=== PATIENT | female | born 1955 | race Caucasian/White ===

== ENCOUNTER → 2022-10-29 | Outpatient (CLI) | payer MEDICARE, OTHER ==
--- NOTE | 2022-11-04 08:25 | MM ---
Reason for Exam: Screening (asymptomatic). Last mammogram was performed 1 year(s) and 6 month(s) ago. Patient History: Menarche at age 14. Hysterectomy at age 32. Currently using Estrogen, starting at age 61. Risk Values: Mi 5 year model risk: 1.2%. NCI Lifetime model risk: 4.4%. Prior Study Comparison: 04/16/2020 Bilateral Screening Mammogram, [facility]. 05/05/2021 Bilateral Screening Mammogram, [facility]. Tissue Density: The breast tissue is heterogeneously dense. This may lower the sensitivity of mammography. Findings: Analyzed By CAD. There is no suspicious group of microcalcifications or new suspicious mass in either breast. Overall Assessment: Negative, BI-RAD 1 Management: Screening Mammogram of both breasts in 1 year. A clinical breast exam by your physician is recommended on an annual basis and results should be correlated with mammographic findings. [facility] will attempt to contact patient to return for supplemental views and ultrasound if indicated. Electronically signed and approved by: Oj Wayne DO
== END | disposition home or self-care (01) ==
LOC: RADMAMWWP 09:15
PROVIDERS: ATTEND Family Medicine
DX: Z12.31 Encounter for screening mammogram for malignant neoplasm of breast (principal)
CPT/HCPCS: 77063; 77067

== ENCOUNTER → 2022-11-06 | Outpatient (CLI) | payer MEDICARE, OTHER ==
--- NOTE | 2022-11-06 09:00 | US ---
EXAMINATION TYPE: US abdomen complete DATE OF EXAM: 11/06/2022 COMPARISON: NONE CLINICAL HISTORY: N83.20 OVARIAN CYST. Abdominal /pelvic pain TECHNIQUE: Multiple sonographic images of the abdomen are obtained. 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 The intrahepatic portion of the IVC and proximal abdominal aorta are within normal limits. There is no evidence of cholelithiasis. Common bile duct is unremarkable. The visu alized portions of the pancreas are homogenous. The spleen is unremarkable. Kidneys are symmetric a nd free of hydronephrosis. No renal lesions are seen. IMPRESSION: 1. Limited exam without evidence for acute process. 2. Prominent common duct. This can be further evaluated with MRCP if clinically warranted. 3. Right renal cyst. 4. Mildly complex hepatic cyst.
--- NOTE | 2022-11-06 09:05 | US ---
EXAMINATION TYPE: US transvaginal DATE OF EXAM: 11/06/2022 COMPARISON: NONE CLINICAL HISTORY: N83.20 OVARIAN CYST. History of ovarian cysts. Partial hysterectomy 35 years ago. TECHNIQUE: Transvaginal (TV). Date of LMP: unknown EXAM MEASUREMENTS: Uterus: Surgically absent Endometrial Stripe: Surgically absent Right Ovary: obscured by overlying bowel content Left Ovary: 1.6 x 1.3 x 1.7 cm 1. Uterus: Surgically absent 2. Endometrium: Surgically absent 3. Right Ovary: Obscured by overlying bowel gas 4. Left Ovary: complex anechoic area = 1.2 x 1.2 x 1.2cm, there is a soft tissue component involving this cyst measuring 4 mm. 5. Bilateral Adnexa: wnl IMPRESSION: 1. No evidence for acute process. 2. Complex left ovarian cyst with soft tissue component. Short-term follow-up 2-3 months is recommen ded since there are no priors. If prior is made available to show stability of this lesion decision a t that time can be made for follow-up.
== END | disposition home or self-care (01) ==
LOC: RADUSWWP 06:58
PROVIDERS: ATTEND Family Medicine
DX: N28.1 Cyst of kidney, acquired (principal); N83.202 Unspecified ovarian cyst, left side; E28.9 Ovarian dysfunction, unspecified; K76.89 Other specified diseases of liver
CPT/HCPCS: 76700; 76830

== ENCOUNTER → 2023-02-05 | Outpatient (CLI) | payer MEDICARE, OTHER ==
--- NOTE | 2023-02-05 07:59 | US ---
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 Gallbladder: No stones seen. Gallbladder wall is thickened to 0.35 cm. Normal less than 0.3 cm. No p ericholecystic fluid is evident. Evidence for sonographic Harrington's sign: No CBD: measures 0.7 cm Spleen: wnl Right Kidney: prominent area appears as regular tissue versus anechoic as seen on prior ultrasound, possible column of bertine or dromedary hump. Left Kidney: wnl Upper IVC: wnl Abd Aorta: wnl IMPRESSION: 1. Mild gallbladder wall thickening. No additional changes suggest acute cholecystitis. 2. Additional findings appears stable from comparison.
== END | disposition home or self-care (01) ==
LOC: RADUSWWP 06:48
PROVIDERS: ATTEND Family Medicine
DX: D13.4 Benign neoplasm of liver (principal); N28.1 Cyst of kidney, acquired; K82.8 Other specified diseases of gallbladder
CPT/HCPCS: 76700

== ENCOUNTER → 2023-10-18 | Outpatient (CLI) | payer MEDICARE, OTHER ==
[2023-10-18 10:37] LABS: Basophils % (A) 1 %; Eosinophils # (A) 0.2 k/uL (0-0.7); Eosinophils % (A) 3 %; HCT 44.5 % (34.0-46.0); HGB 14.5 gm/dL (11.4-16.0); Lymphocytes % (A) 33 %; MCH 29.6 pg (25.0-35.0); MCHC 32.6 g/dL (31.0-37.0); MCV 90.7 fL (80.0-100.0); Mean Platelet Volume 8.4; Monocytes # (A) 0.4 k/uL (0-1.0); Monocytes % (A) 6 %; Neutrophils # (A) 3.4 k/uL (1.3-7.7); Neutrophils % (A) 56 %; Platelet Count 297 k/uL (150-450); RDW 12.8 % (11.5-15.5); WBC 6.2 k/uL (3.8-10.6)
== END | disposition home or self-care (01) ==
LOC: LABPAT 09:01
PROVIDERS: ATTEND Obstetrics & Gynecology
DX: Z01.812 Encounter for preprocedural laboratory examination (principal); N83.299 Other ovarian cyst, unspecified side
CPT/HCPCS: 36415; 85025; 93005

== ENCOUNTER 2023-10-29 07:40 | Day surgery (SDC) | payer MEDICARE, OTHER ==
[~2023-10-29 07:40] MED LIST: Pre Op ABX Message 1 EACH MISC MISCELLANE ONE
[2023-10-29] MEDS ORDERED: HYDROmorphone 0.5 MG/0.5 ML SYRINGE IVP PRN (08:07)
[2023-10-29] MEDS ORDERED: droPERidol 5 MG/2 ML VIAL IVP ONE (08:07)
[2023-10-29] MEDS ORDERED: LIDOCAINE 1% (10MG/ML) FOR IV START INTRADERMA PRN (08:07)
[2023-10-29] MEDS: LACTATED RINGERS 1,000 ML IV SCH (08:24)
[2023-10-29] MEDS: ONDANSETRON 4 MG/2 ML VIAL IVP ONE (08:25)
[2023-10-29] MEDS: DEXAMETHASONE SOD PHOSPHATE 4 MG/ML 1 ML VIAL IV ONE (08:25)
[2023-10-29] MEDS ORDERED: ROCURONIUM 10 MG/ML (5 ML VIAL) IV ONE (09:12)
[2023-10-29] MEDS ORDERED: MIDAZOLAM 2 MG/2 ML VIAL ONE (09:12)
[2023-10-29] MEDS ORDERED: KETOROLAC 15 MG/ML 1 ML VIAL ONE (09:12)
[2023-10-29] MEDS ORDERED: SUCCINYLCHOLINE CHLORIDE 200 MG/10 ML VIAL IV ONE (09:12)
[2023-10-29] MEDS ORDERED: HYDROmorphone (PF) 1 MG/ML ONE (09:12)
[2023-10-29] MEDS ORDERED: PROPOFOL 10 MG/ML 20 ML VIAL IV ONE (09:12)
[2023-10-29] MEDS ORDERED: GLYCOPYRROLATE 0.2 MG/ML 2 ML VIAL ONE (09:12)
[2023-10-29] MEDS ORDERED: NEOSTIGMINE 1 MG/ML 10 ML VIAL ONE (09:12)
[2023-10-29] MEDS ORDERED: LIDOCAINE 1% INJ 10MG/ML (20 ML MDV) ONE (09:12)
[2023-10-29] MEDS ORDERED: fentaNYL (PF) 50 MCG/ML 2 ML AMP ONE (09:12)
[2023-10-29] MEDS: BUPIVACAINE (PF) 0.25% 30 ML VIAL SQ ONE (09:48)
[2023-10-29] MEDS: LACTATED RINGERS 1,000 ML IV ONE (10:24)
--- NOTE | 2023-10-29 12:09 | P.OP ---
Date of Procedure: 10/29/23 Preoperative Diagnosis: 1. Persistent Bilateral Complex Ovarian Cysts 2. Risk Reduction Postoperative Diagnosis: 1. Persistent Bilateral Complex Ovarian Cysts 2. Risk Reduction 3. Severe Pelvic Adhesive Disease Procedure(s) Performed: 1. Laparoscopic Bilateral Salpingoophorectomy 2. Extensive Lysis of Adhesions (60 minutes) 3. Cystoscopy Implants: None Anesthesia: SUDHIR Surgeon: Debbie Buckley Estimated Blood Loss (ml): 10 IV fluids (ml): 1,000 Urine output (ml): 300 (clear yellow) Pathology: other (bilateral fallopian tubes and ovaries) Condition: stable Disposition: same day Indications for Procedure: Ms. Hogan is a 68 year old with persistent complex ovarian masses bilaterally for several years who presents for definitive management with laparoscopic BSO. The risks, benefits, and alternatives to laparoscopic bilateral salpingoophorectomy are discussed with the patient including risk of bleeding, infection, damage to surrounding structures including bladder/bowel/ureters, and post-operative VTE. Operative Findings: Severe pelvic adhesive disease. 2 centimeter cyst noted on left ovary, right ovary appears within normal limits. Description of Procedure: Patient was taken to the OR with IV fluid running and pneumatic compression stockings on both legs. General anesthesia was obtained without difficulty. The patient was placed in the dorsal lithotomy position with Graeme-type stirrups with knees bent at 30 degree angles. The patient as prepared and draped. The bladder was emptied. A sponge stick was placed into the vagina. A vertical skin incision was made at the umbilical fold. The periumbilical skin was manually elevated. A 5mm trocar was inserted into the abdomen under direct laparoscopic visualization. The pneumoperitoneum was established with CO2 gas to a pressure of 15mmHg. Intraabdominal survey revealed lack of any visceral injury. Stable hematomas were noted at the trocar insertion sites. The pelvic and abdominal anatomy was noted as above. Two additional laparoscopic assit ports were placed in the right and left lower quadrants. Lysis of adhesions was undertaken for approximately 60 minutes to identify bilateral fallopian tubes and ovaris. An additional left lower quadrant trocar was inserted for additional retraction. A Shanell Grasper was used to pear picker the fimbriated end of the right fallopian tube. The LigaSure device was used to seal and ligate the fallopian tube. The fallopian tube was then transected. The right IP ligament was trasected with the Ligasure device. The right ovary and fallopian tube were placed in a 5mm Endocatch bag. This process was repeated on the left side. FloSeal was used at the side of the left ovary for bleeding prophylaxis. Excellent hemostasis was noted at the end of the case. The trocars were removed under direct visualization and the hematomas at the trocar insertion sites were again noted to be stable with no expansion and no active bleeding. The patient tolerated the procedure well. All instruments were removed from the abdomen and vagina, and all counts were correct times two. All skin incisions were closed with 4-0 Monocryl and skin glue. The patient was taken to the recovery room in stable condition.the recovery room in stable condition. She will be prescribed Motrin and Tylenol as needed for pain. She will follow up with me in 2 weeks in the office. Verbal and written instructions are provided to the patient.
[2023-10-29 12:14] VITALS: TEMP 97.6
[2023-10-29] MEDS: MEPERIDINE 50 MG/ML SYRINGE IVP ONE (12:32)
[2023-10-29 12:54] VITALS: RESP 16
[2023-10-29 13:33] VITALS: BP 144/80; PULSE 80
== END 2023-10-29 13:59 | disposition home or self-care (01) ==
LOC: OR 07:40
PROVIDERS: ATTEND Obstetrics & Gynecology
DX: N83.291 Other ovarian cyst, right side (principal); N83.8 Other noninflammatory disorders of ovary, fallopian tube and broad ligament; N73.6 Female pelvic peritoneal adhesions (postinfective); N28.1 Cyst of kidney, acquired; Z79.899 Other long term (current) drug therapy
CPT/HCPCS: 88305; 58661; J2250; J0330; J1100; J2710; J2175; J2405; J2001; J3010; J1170; J1885; J2704; J0665

== ENCOUNTER → 2023-11-29 | Outpatient (CLI) | payer MEDICARE, OTHER ==
--- NOTE | 2023-11-30 18:50 | MM ---
Reason for Exam: Screening (asymptomatic). Last mammogram was performed 1 year(s) and 1 month(s) ago. Patient History: Menarche at age 14. Patient has no children. Left ovary removed at age 68. Right ovary removed at age 68. Hysterectomy at age 32. Currently using Estrogen, starting at age 61. 1980, Excisional Biopsy on the Left side. Risk Values: Mi 5 year model risk: 2.2%. NCI Lifetime model risk: 7.6%. Prior Study Comparison: 04/16/2020 Bilateral Screening Mammogram, [facility]. 05/05/2021 Bilateral Screening Mammogram, [facility]. 10/29/2022 Bilateral MG 3D screening mammo w/cad, [facility]. Tissue Density: The breasts are heterogeneously dense, which may obscure small masses. Findings: Analyzed By CAD. There is no suspicious group of microcalcifications or new suspicious mass in either breast. Overall Assessment: Negative, BI-RAD 1 Management: Screening Mammogram of both breasts in 1 year. . Patient should continue monthly self-breast exams. A clinical breast exam by your physician is recommended on an annual basis. This exam should not preclude additional follow-up of suspicious palpable abnormalities. Note on Mi scores and lifetime risk: 1. A Mi score greater than 3% is considered moderate risk. If this is the case, consider specialist referral to assess eligibility for a risk reducing agent. 2. If overall lifetime risk for the development of breast cancer is 20% or higher, the patient may qualify for future screening with alternating mammogram and breast MRI. Electronically signed and approved by: Linda Pitts M.D. Radiologist
== END | disposition home or self-care (01) ==
LOC: RADMAMWWP 08:35
PROVIDERS: ATTEND Family Medicine
DX: Z12.31 Encounter for screening mammogram for malignant neoplasm of breast (principal)
CPT/HCPCS: 77063; 77067

== ENCOUNTER → 2024-11-29 | Outpatient (CLI) | payer MEDICARE, OTHER ==
--- NOTE | 2024-11-29 11:48 | MM ---
Reason for Exam: Screening (asymptomatic). Last screening mammogram was performed 12 month(s) ago. Patient History: Menarche at age 14. Patient has no children. Left ovary removed at age 68. Right ovary removed at age 68. Hysterectomy at age 32. Currently using Estrogen, starting at age 61. 1980, Excisional Biopsy on the Left side. Risk Values: Mi 5 year model risk: 2.2%. NCI Lifetime model risk: 7.2%. Prior Study Comparison: 05/05/2021 Bilateral Screening Mammogram, [facility]. 10/29/2022 Bilateral MG 3D screening mammo w/cad, [facility]. 11/29/2023 Bilateral MG 3D screening mammo w/cad, [facility]. Tissue Density: The breasts are heterogeneously dense, which may obscure small masses. Findings: Analyzed By CAD. Right breast: There is no suspicious group of microcalcifications or new suspicious mass. Left breast: There is no suspicious group of microcalcifications or new suspicious mass. Overall Assessment: Negative, BI-RAD 1 Management: Screening Mammogram of both breasts in [address] [facility] will attempt to contact patient to return for supplemental views and ultrasound if indicated. Patient should continue monthly self-breast exams. A clinical breast exam by your physician is recommended on an annual basis. This exam should not preclude additional follow-up of suspicious palpable abnormalities. Note on Mi scores and lifetime risk: 1. A Mi score greater than 3% is considered moderate risk. If this is the case, consider specialist referral to assess eligibility for a risk reducing agent. 2. If overall lifetime risk for the development of breast cancer is 20% or higher, the patient may qualify for future screening with alternating mammogram and breast MRI. [facility], , 11/29/2024 11:42 AM. Electronically signed and approved by: Oj Wayne DO
== END | disposition home or self-care (01) ==
LOC: RADMAMWWP 10:45
PROVIDERS: ATTEND Family Medicine
DX: Z12.31 Encounter for screening mammogram for malignant neoplasm of breast (principal); R92.333 Mammographic heterogeneous density, bilateral breasts
CPT/HCPCS: 77063; 77067